=== PATIENT | male | born 1975 | race Caucasian/White ===

== ENCOUNTER 2023-11-17 22:58 | Emergency (ER) | payer SELFPAY ==
[~2023-11-17] VITALS: Ht 172.7 cm; Wt 95.3 kg
[2023-11-17 22:59] VITALS: BP 192/100; PULSE 93; RESP 14; TEMP 98.3; O2SAT 99
[2023-11-18 00:08] LABS: BASOPHILS # (AUTO) 0.1 K/uL (0.00-0.22); BASOPHILS % (AUTO) 1.2 % (0.0-2.0); EOSINOPHILS # (AUTO) 0.3 K/uL (0-0.4); EOSINOPHILS % (AUTO) 2.4 % (0.0-4.0); HEMATOCRIT 40.7 % (36-52); HEMOGLOBIN 13.6 g/dL (12.0-18.0); LYMPHOCYTES # (AUTO) 2.2 K/uL (2.0-11.5); LYMPHOCYTES % (AUTO) 19.2 % (20.5-51.1); MEAN CORPUSCULAR HEMOGLOBIN 29 pg (27-31); MEAN CORPUSCULAR HGB CONC 33 g/dL (33-37); MEAN CORPUSCULAR VOLUME 87.7 fL (80-94); MONOCYTES # (AUTO) 0.6 K/uL (0.8-1.0); MONOCYTES % (AUTO) 5.4 % (1.7-9.3); NEUTROPHILS # (AUTO) 8.1 K/uL (1.8-7.7); NEUTROPHILS % (AUTO) 71.8 % (42.2-75.2); PLATELET COUNT (AUTO) 221 K/uL (140-450); RED BLOOD CELL COUNT(AUTO) 4.64 MIL/uL (4.20-6.10); RED CELL DISTRIBUTION WIDTH 13.6 % (11.6-13.7); WHITE BLOOD COUNT (AUTO) 11.3 K/uL (4.8-10.8)
[2023-11-18 00:21] LABS: ANION GAP 9.3 (8-16); CALCIUM 9.4 mg/dL (8.5-10.1); CARBON DIOXIDE 27.9 mmol/L (21-32); CHLORIDE 98 mmol/L (98-107); CREATININE 1.3 mg/dL (0.6-1.3); GFR ARICAN-AMERICAN 76 mL/min (>90); GFR NON ARICAN-AMERICAN 63 mL/min (>90); GLUCOSE 308 mg/dL (74-106); POTASSIUM 4.2 mmol/L (3.5-5.1); SODIUM SERUM 131 mmol/L (136-145); UREA NITROGEN, BLOOD 27 mg/dL (7-18)
[2023-11-18 00:35] LABS: ALANINE AMINOTRANSFERASE 67 U/L (12-78); ALBUMIN 3.7 g/dL (3.4-5.0); ALKALINE PHOSPHATASE 118 U/L (50-136); ASPARTATE AMINOTRANSFERASE 53 U/L (15-37); TOTAL BILIRUBIN 0.4 mg/dL (0.0-1.0); TOTAL PROTEIN, SERUM 7.7 g/dL (6.4-8.2)
[2023-11-18] MEDS ORDERED: ATOR10TA51 PO (02:10)
[2023-11-18] MEDS ORDERED: METF-346 PO (02:10)
[2023-11-18] MEDS ORDERED: LISI5TAB18 PO (02:10)
[2023-11-18] MEDS: INSULIN REGULAR, HUMAN 100 UNIT/ML VIAL SUBQ ONE (02:22)
[2023-11-18 03:20] VITALS: BP 142/78; PULSE 78; RESP 16; TEMP 98.3; O2SAT 95
== END 2023-11-18 03:20 | disposition home or self-care (01) ==
LOC: MED 22:58
DX: R06.02 Shortness of breath (principal); R07.89 Other chest pain; E11.9 Type 2 diabetes mellitus without complications; I10 Essential (primary) hypertension
CPT/HCPCS: 36415; 71045; 80053; 84484; 85025; 93005; 96372; 99285; J1815; Q0092